=== PATIENT | female | born 1950 | race Asian ===

== ENCOUNTER → 2025-03-22 11:53 | Outpatient (REF) | payer OTHER, SELFPAY | LOC: RAD 11:53 | PROVIDERS: ATTENDING PHYSICIAN Chiropractor; FAMILY PHYSICIAN Family Medicine | DX: M54.2 Cervicalgia (principal); M53.2X7 Spinal instabilities, lumbosacral region; R10.2 Pelvic and perineal pain | CPT/HCPCS: 72050; 72110; 72170 ==